=== PATIENT | female | born 1970 | race Caucasian/White ===

== ENCOUNTER → 2018-08-30 | Outpatient (CLI) | payer BC ==
--- NOTE | 2018-08-30 10:02 | Diagnostic Imaging Report ---
EXAMINATION: Magnetic resonance imaging of the right shoulder without contrast. DATE: August 30, 2018. COMPARISON: None. HISTORY: 48-year-old female, right shoulder pain. Evaluation for rotator cuff tendon tear. TECHNIQUE: Magnetic Resonance Imaging sequences were performed of the shoulder without contrast. FINDINGS: ROTATOR CUFF, LIGAMENTS, TENDONS, AND MUSCLES: There is mild supraspinatus tendinopathy. The infraspinatus, subscapularis, and teres minor tendons are intact. There is normal rotator cuff muscle bulk. There is a benign intramuscular lipoma within the teres minor muscle measuring approximately 1.7 x 1.3 x 3.2 cm in size. LONG HEAD OF BICEPS: The biceps labral attachment and long head of the biceps tendon are intact. The long head of the biceps tendon is normally positioned within the bicipital groove. GLENOHUMERAL JOINT: The humeral head is well positioned relative to the glenoid. The labrum is grossly intact. There is no identified paralabral cyst. The articular cartilage is grossly intact. There is no joint effusion. ACROMIOCLAVICULAR JOINT: The acromioclavicular joint is normally aligned. The coracoclavicular and coracoacromial ligaments are intact. There are mild to moderate acromioclavicular degenerative changes with bulbous lateral clavicle and osteophytes projecting approximately 4 mm below the joint margin. BONE: There is no os acromiale. There is no acute fracture, bone contusion, or evidence of osteonecrosis. BURSAE AND SOFT TISSUES: The bursae and soft tissue surrounding the shoulder are unremarkable. IMPRESSION: 1. Mild supraspinatus tendinopathy. Negative for rotator cuff tendon tear. 2. Mild to moderate acromioclavicular degenerative changes with bulbous lateral clavicle and osteophytes projecting 4 mm below the joint margin. 3. Grossly intact labrum and unremarkable glenohumeral joint assessment. 4. No acute fracture, bone contusion, or evidence of osteonecrosis. 5. Benign intramuscular lipoma within the teres minor. Dictated by: Dictated on workstation # [id number]
== END ==
LOC: RAD 08:25
PROVIDERS: ATTEND Orthopaedic Surgery
DX: M19.011 Primary osteoarthritis, right shoulder (principal); M75.81 Other shoulder lesions, right shoulder; M25.711 Osteophyte, right shoulder; D17.9 Benign lipomatous neoplasm, unspecified
CPT/HCPCS: 73221

== ENCOUNTER 2019-12-20 07:16 | Outpatient (RCR) | payer BC ==
[~2019-12-20] VITALS: Ht 162 cm; Wt 125.0 kg
[~2019-12-20 07:16] MED LIST: BUPR450T3 PO; ESTR2TAB PO; GLIP10TA13 PO; LEVO50TA6 PO; SITA1TBM7 PO
== END 2019-12-20 10:26 | disposition home or self-care (01) ==
LOC: PREOP 07:16
PROVIDERS: ATTEND Surgery
DX: Z01.818 Encounter for other preprocedural examination (principal); Z01.812 Encounter for preprocedural laboratory examination; Z12.11 Encounter for screening for malignant neoplasm of colon; Z20.828 Contact with and (suspected) exposure to other viral communicable diseases
CPT/HCPCS: 87635

== ENCOUNTER 2019-12-24 09:18 | Day surgery (SDC) | payer BC ==
[~2019-12-24] VITALS: Ht 162 cm; Wt 125.0 kg
[2019-12-24] MEDS ORDERED: LACTATED RINGERS 1,000 ML IV ONE (09:26)
[2019-12-24] MEDS ORDERED: LACTATED RINGERS 1,000 ML IV STA (09:26)
--- NOTE | 2019-12-24 09:30 | Progress Note-Pre Operative ---
Pre-Operative Progress Note H&P Reviewed The H&P was reviewed, patient examined and no changes noted. Time Seen by Provider: : Date H&P Reviewed: Dec 24, 2019 Time H&P Reviewed: : Pre-Operative Diagnosis: screening colon ELAN GUTIERREZ DO Dec 24, 2019 09:30
[2019-12-24] MEDS ORDERED: proPOfol 200 MG/20 ML (DIPRIVAN) VIAL IV ONE ×2 (09:32→10:21)
[2019-12-24] MEDS ORDERED: MIDAZOLAM 2 MG/2 ML (VERSED) VIAL ONE (09:32)
[2019-12-24 09:47] VITALS: BP 134/85
[2019-12-24 10:30] VITALS: BP 141/65
--- OUTSIDE RECORDS SUMMARY | 2019-12-24 10:32 | XMS REPORT | Continuity of Care Document ---
Author Organization Unknown Address Unknown Phone Unavailable Allergies Active Description Code Type Severity Reaction Onset Reported/Identified Relationship to Patient Clinical Status Yes Penicillins [id number] Drug Aller gy Mild HIVES 12/18/2019 Medications There is no data. Problems Date Dx Coded Attending Type Code Diagnosis Diagnosed By 08/30/2018 JULIANE WOLF, LEE Lin Ot D17.9 BENIGN LIPOMATOUS NEOPLASM, UNSPECIFIED 08/30/2018 LEE CARDOZO MD Ot M19.011 PRIMARY OSTEOARTHRITIS, RIGHT SHOULDER 08/30/2018 LEE CARDOZO MD Ot M25.711 OSTEOPHYTE, RIGHT SHOULDER 08/30/2018 LEE CARDOZO MD Ot M75.81 OTHER SHOULDER LESIONS, RIGHT SHOULDER 09/05/2018 LEE CARDOZO MD Ot D17.9 BENIGN LIPOMATOUS NEOPLASM, UNSPECIFIED 09/05/2018 LEE CARDOZO MD Ot M19.011 PRIMARY OSTEOARTHRITIS, RIGHT SHOULDER 09/05/2018 LEE CARDOZO MD Ot M25.711 OSTEOPHYTE, RIGHT SHOULDER 09/05/2018 LEE CARDOZO MD Ot M75.81 OTHER SHOULDER LESIONS, RIGHT SHOULDER 09/15/2018 LEE CARDOZO MD Ot D17.9 BENIGN LIPOMATOUS NEOPLASM, UNSPECIFIED 09/15/2018 LEE CARDOZO MD Ot M19.011 PRIMARY OSTEOARTHRITIS, RIGHT SHOULDER 09/15/2018 LEE CARDOZO MD Ot M25.711 OSTEOPHYTE, RIGHT SHOULDER 09/15/2018 LEE CARDOZO MD Ot M75.81 OTHER SHOULDER LESIONS, RIGHT SHOULDER Procedures There is no data. Results Test Result Range SUREPATH PAP AND HPV mRNA E6/E7 - 09:36 CLINICAL INFORMATION: NRG LMP: NRG PREV. PAP: NRG PREV. BX: NRG SOURCE: Cervix NRG STATEMENT OF ADEQUACY: NRG INTERPRETATION/RESULT: NRG ROUTE JUMPER: NRG HPV mRNA E6/E7, SUREPATH VIAL Not Detected NOT DETECTED COMMENT NRG A1C - 11/12/19 07:56 HEMOGLOBIN A1c 7.4 % of total Hgb <5.7 Encounters ACCT No. Visit Date/Time Discharge Status Pt. Type Provider Facility Loc./Unit Complaint [id number] 12/12/2019 10:30:00 12/12/2019 23:59: 59 CLS Outpatient PRISCILLA SALMON [facility] [id number] 11/12/2019 07:45:00 Document Registration [id number] 01/08/2019 09:20:00 Document Registration [id number] 12/20/2019 07:16:00 020 10:26:00 DIS Outpatient ELAN GUTIERREZ DO [facility] PREOP SCREENING [id number] 08/30/2018 08:25:00 019 23:59:59 CLS Outpatient LEE CARDOZO MD [facility] RAD ROTATOR CUFF TEAR PARTI AL RT [id number] 12/24/2019 11:00:00 P EN Preadmit ELAN GUTIERREZ DO [facility] ENDO SCREENING.
[2019-12-24 10:35] VITALS: BP 138/75
--- NOTE | 2019-12-24 10:35 | Progress Note-Post Operative ---
Post-Operative Progess Note Surgeon (s)/Hand Shoe Cutter (s) Surgeon ELAN GUTIERREZ DO Hand Shoe Cutter: none Pre-Operative Diagnosis screening colon Post-Operative Diagnosis int hemorrhoids Procedure & Operative Findings Date of Procedure 12/24/19 Procedure Performed/Findings colon Anesthesia Type IV sedation by anesthesia Estimated Blood Loss Estimated blood loss (mL): none Specimens/Packing Specimens Removed none ELAN GUTIERREZ DO Dec 24, 2019 10:35
--- NOTE | 2019-12-24 10:38 | Endoscopy Discharge Instruct ---
Endo Procedure/Findings Findings 1.: Internal Hemorrhoids Discharge Instructions - Activity: You might feel a little sleepy until tomorrow. This is due to the me dicine you received to relax you. Until tomorrow, you should: NOT drive a car, operate machinery or power tools. NOT drink any alcoholic beverages. NOT make any important decisions or sign importortant papers. Do not return to work until tomorrow, unless otherwise instructed. Resume previous activities tomorrow. Diet: Start by taking liquids. If you tolerate liquids, advance to solid food. make an appointment for one week 1.: Colonscopy in 10 years Notify Physician - If you experience excessive bleeding, unusual abdominal pain, fever, or chest pain, contact your doctor immediately. ELAN GUTIERREZ DO Dec 24, 2019 10:38
[2019-12-24 10:40] VITALS: BP 135/78
[2019-12-24 11:10] VITALS: BP 118/70
[2019-12-24 11:15] VITALS: BP 118/70
--- NOTE | 2019-12-24 14:18 | Anesthesia-General Post-Op ---
MAC Patient Condition Mental Status/LOC: Same as Preop Cardiovascular: Satisfactory Nausea/Vomiting: Absent Respiratory: Satisfactory Pain: Controlled Complications: Absent Post Op Complications Complications None Follow Up Care/Instructions Patient Instructions None needed. Anesthesiology Discharge Order Discharge Order Patient was seen this morning after the procedure and she was doing well, no complaints, stable vital signs, no apparent adverse anesthesia problems. KENNA EUBANKS DO Dec 24, 2019 14:18
--- NOTE | 2019-12-25 04:15 | OPERATIVE REPORT ---
DATE OF SERVICE: 12/24/2019 PREOPERATIVE DIAGNOSIS: Screening colonoscopy. POSTOPERATIVE DIAGNOSIS: Internal hemorrhoids. PROCEDURE: Colonoscopy. SURGEON: Louis Charles DO TEST AUTOMATION ARCHITECT: None. ANESTHESIA: IV sedation by the anesthesiologist. SPECIMENS: None. BLOOD LOSS: None. FLUIDS: Per anesthesia. POSTOPERATIVE CONDITION: Stable. INDICATION FOR PROCEDURE: The patient is a 49-year-old female who has never had a colonoscopy, needs one for screening. FINDINGS: The patient had some very small internal hemorrhoids and no other obvious pathology. PROCEDURE NOTE: After informed consent was obtained, the patient was brought to the endoscopy suite, placed in bed in left lateral decubitus position. She was administered IV sedation by the anesthesiologist who then monitored her vitals the entire time, heart rate, blood pressure and pulse ox and the scope was inserted, pushed all the way about 140 cm, able to get to the cecum, took a picture of appendiceal orifice and then actually able to get into the terminal ileum, took a picture and then slowly withdrew the scope insufflating to look circumferentially at the espinal looking the cecum, up the ascending colon to the hepatic flexure, then down the transverse colon to the splenic flexure and then into the descending colon following down through the sigmoid into the rectum, retroflexed in the rectal vault, saw some minimal internal hemorrhoids, took a picture and then removed the scope. The patient tolerated the procedure, recovered in endoscopy suite. Job ID: [id number] DocumentID: [id number] Dictated Date: 12/24/2019 20:40:18 Group Captain Date: 12/25/2019 04:14:22 Dictated By: LOUIS CHARLES DO
== END 2019-12-24 11:15 | disposition home or self-care (01) ==
LOC: ENDO 09:18
PROVIDERS: ATTEND Surgery
DX: Z12.11 Encounter for screening for malignant neoplasm of colon (principal); K64.8 Other hemorrhoids; Z88.0 Allergy status to penicillin; E11.9 Type 2 diabetes mellitus without complications; F32.9 Major depressive disorder, single episode, unspecified; F41.9 Anxiety disorder, unspecified; J45.909 Unspecified asthma, uncomplicated; E66.01 Morbid (severe) obesity due to excess calories; Z68.42 Body mass index [BMI] 45.0-49.9, adult; K52.9 Noninfective gastroenteritis and colitis, unspecified; K59.09 Other constipation; Z79.899 Other long term (current) drug therapy; Z79.84 Long term (current) use of oral hypoglycemic drugs; Z79.890 Hormone replacement therapy
CPT/HCPCS: 82962

== ENCOUNTER 2021-12-14 05:37 | Emergency (ER) | payer BC ==
[~2021-12-14 05:37] MED LIST changes: -ESTR2TAB PO; +ESTR2TAB3 PO
[2021-12-14] MEDS ORDERED: diphenhydrAMINE 50 MG/ML INJ (BENADRYL) IM ONE (06:00)
[2021-12-14] MEDS ORDERED: FAMOTIDINE 20MG/2ML IV (PEPCID) IVP ONE (06:00)
--- NOTE | 2021-12-14 06:54 | ED Integumentary General ---
General Chief Complaint: Allergic Reaction Stated Complaint: ALLERGIC REACTION Nursing Triage Note: pt presents with an allergic reaction. reports taking an albuteral nebulizer tx around 0400 this morning. reports facial swelling and hives that began after the treatment. denies taking benadryl at home before arrival. reports she was dx with covid on 12/12 and has been using the albuteral since then as well as her rescue inhailer. swelling noted to right eye, face, and lips. Source: patient, family Exam Limitations: no limitations History of Present Illness Date Seen by Provider: Dec 14, 2021 Time Seen by Provider: 05:35 Initial Comments Patient is a 51-year-old female diagnosed with COVID 2 days ago who presents with acute allergic reaction. Patient with right facial swelling involving eyelid, cheek, eye with diffuse hives on right arm and torso. Patient also reports some chest tightness and shortness of breath. She took a Ventolin br eathing treatment prior to coming to the emergency. She has been taking a topical eyedrop for treatment of pinkeye and has taken vitamin C. she is not on any other new medications. Symptom onset was 90 minutes prior to arrival. Timing/Duration: this morning Severity: moderate Possible Cause: other Modifying Factors: improves with other Associated Symptoms: other Allergies and Home Medications Allergies Coded Allergies: Penicillins (Verified Allergy, Mild, HIVES, 12/18/19) Patient Home Medication List Home Medication List Reviewed: Yes Bupropion HCl (Bupropion Xl) 450 Mg Tab.er.24h, 450 MG PO DAILY, (Reported) Entered as Reported by: RONNY BUENROSTRO on 12/19/19 0947 Estradiol (Estradiol Tablet) 2 Mg Tablet, 2 MG PO DAILY, (Reported) Entered as Reported by: RONNY BUENROSTRO on 12/19/19 0947 Glipizide (Glipizide) 10 Mg Tablet, 10 MG PO BID, (Reported) Entered as Reported by: RONNY BUENROSTRO on 12/19/19 09 Levothyroxine Sodium (Levothyroxine Sodium) 50 Mcg Tablet, 50 MCG PO DAILY, (Reported) Entered as Reported by: RONNY BUENROSTRO on 12/19/19 09 Sitagliptin Phos/Metformin HCl (Janumet Xr 100-1,000 mg Tablet) 1 Each Tbmp.24hr, 1 EACH PO DAILY, (Reported) Entered as Reported by: RONNY BUENROSTRO on 12/19/19 0947 Review of Systems Review of Systems Constitutional: see HPI EENTM: see HPI Respiratory: see HPI Cardiovascular: see HPI Gastrointestinal: see HPI Musculoskeletal: see HPI Skin: see HPI Psychiatric/Neurological: See HPI Endocrine: See HPI Hematologic/Lymphatic: See HPI All Other Systems Reviewed Negative Unless Noted: Yes Past Edjboew-Rebaos-Vkhkpo Hx Patient Social History Tobacco Use?: No Substance use?: No Alcohol Use?: No Pt feels they are or have been: No Immunizations Up To Date Tetanus Booster (TDap): Unknown Influenza Vaccine Up-to-Date: Yes; Up-to-Date First/Initial COVID19 Vaccinat: unknown date Second COVID19 Vaccination Chaka: unknown date Seasonal Allergies Seasonal Allergies: No Past Medical History Surgeries: Yes (CERVICAL CONIZATION, D&C) Section, Hysterectomy Respiratory: Yes Asthma Cardiac: No Neurological: No 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 Sexually Transmitted Disease: No HIV/AIDS: No Genitourinary: No Gastrointestinal: Yes Chronic Constipation, Chronic Diarrhea Musculoskeletal: No Endocrine: Yes Hypothyroidsim, Diabetes, Non-Insulin dep HEENT: Yes (GLASSES) Loss of Vision: Denies Hearing Impairment: Denies Cancer: No Psychosocial: Yes Anxiety, Depression Integumentary: No Blood Disorders: No Adverse Reaction/Blood Tranf: No (N/A) Physical Exam Vital Signs Vital Signs - First Documented Capillary Refill : General Appearance: no apparent distress HEENT: PERRL/EOMI, normal ENT inspection, other (Right orbital swelliing with chemosis external lip swelling, no airway involvement) Neck: supple Respiratory: lungs clear, normal breath sounds Gastrointestinal: non tender, soft Neurologic/Psychiatric: oriented x 3 Skin: rash (Fine hives over right upper extremity and upper torso) Progress/Results/Core Measures Results/Orders My Orders Orders - NIMA CONTRERAS DO Dexamethasone Injection (Decadron Injec (12/14/21 06:00) Famotidine Injection (Pepcid Injection) (12/14/21 06:00) Diphenhydramine Injection (Benadryl Inje (12/14/21 06:00) Medications Given in ED Current Medications Medications Dose Ordered Sig/Dyllan Route Start Time Stop Time Status Last Admin Dose Admin Dexamethasone Sodium Phosphate 12 mg ONCE ONCE IV 12/14/21 06:00 12/14/21 06:01 DC 12/14/21 05:59 12 MG Diphenhydramine HCl 50 mg ONCE ONCE IM 12/14/21 06:00 12/14/21 06:01 DC 12/14/21 05:59 50 MG Famotidine 40 mg ONCE ONCE IVP 12/14/21 06:00 12/14/21 06:01 DC 12/14/21 05:59 40 MG Vital Signs/I&O 12/14/21 12/14/21 12/14/21 05:49 05:49 06:22 Temp 37.0 Pulse 127 115 Resp 24 B/P (MAP) 126/82 (97) 147/77 Pulse Ox 95 95 O2 Delivery Room Air Room Air Room Air Blood Pressure Mean: 100 Departure Communication (Admissions) Acute allergic reaction COVID-positive patient, etiology unclear. Steroids, an tihistamines given in the emergency department significant provement. Given the extent of ocular involvement I will discontinue topical antibiotics continue supportive care with PCP follow-up. Acute airway obstruction provided return precautions reviewed. Patient's spouse has 2 EpiPen's at home. Patient verbalizes understanding agreement discharge instructions prior to departure peer Impression Primary Impression: Acute allergic reaction Disposition: HOME, SELF-CARE Condition: Stable Departure-Patient Inst. Decision time for Depature: 07:00 Referrals: NO,LOCAL PHYSICIAN (PCP) Primary Care Physician PRISCILLA SALMON APRN (Family) Primary Care Physician Patient Instructions: Allergic Reaction ED Add. Discharge Instructions: You were evaluated in the emergency department for an acute allergic reaction. The cause of your allergy has not been determined. Please discontinue antibiotic eyedrops and fill newly prescribed medications and take as directed. If you develop airway involvement or difficulty swallowing, use home epinephrine pen and contact 911. Follow-up with your PCP as needed. All discharge instructions reviewed with patient and/or family. Voiced understanding. Scripts Hydroxyzine HCl (Hydroxyzine HCl) 50 Mg Tablet 50 MG PO Q8H, #5 TAB Prov: NIMA CONTRERAS DO 12/14/21 Prednisone (Prednisone) 20 Mg Tab 60 MG PO DAILY, #5 TAB 0 Refills Prov: NIMA CONTRERAS DO 12/14/21 Famotidine (Pepcid) 40 Mg Tablet 40 MG PO BID, #10 TAB Prov: NIMA CONTRERAS DO 12/14/21 NIMA CONTRERAS DO Dec 14, 2021 06:54
[2021-12-14] MEDS ORDERED: PRD20T PO (07:03)
[2021-12-14] MEDS ORDERED: HYDR50TA76 PO (07:03)
[2021-12-14] MEDS ORDERED: FAMO40TA72 PO (07:03)
[2021-12-14 07:05] VITALS: BP 122/56
[2021-12-14] MEDS ORDERED: EPIN0.3P3 IJ (07:05)
== END 2021-12-14 07:07 | disposition home or self-care (01) ==
LOC: EDUNIT# 05:37 → ER FS 05:40
DX: T78.40XA Allergy, unspecified, initial encounter (principal); Z28.310 Unvaccinated for COVID-19